=== PATIENT | male | born 1985 | race Asian ===

== ENCOUNTER → 2024-10-08 | Outpatient (CLI) | payer OTHER, SELFPAY ==
[2024-10-08 09:28] LABS: Vitamin B12 641 pg/mL (211-911); Vitamin D 25 Hydroxy Total 36.2 ng/mL (7.3-40.2)
[2024-10-17 06:41] LABS: Albumin 4.6 g/dL (3.6-5.1); Sex Hormone Binding Globulin* 38 nmol/L (10-50); Testosterone, Bioavailable 139.5 ng/dL (110.0-575.0); Testosterone, Free 66.5 pg/mL (46.0-224.0); Testosterone,Total 550 ng/dL (250-1100)
[2024-10-23 08:28] LABS: SHBG DUPLICATE ORDER
== END | disposition home or self-care (01) ==
LOC: SLAB 07:13
PROVIDERS: PCP Nurse Practitioner Family; Referring Provider Nurse Practitioner Family; Visit Provider Nurse Practitioner Family
DX: R89.1 Abnormal level of hormones in specimens from other organs, systems and tissues (principal); R53.82 Chronic fatigue, unspecified
CPT/HCPCS: 36415; 82040; 82306; 82607; 84153; 84270; 84403